=== PATIENT | female | born 1935 | race Caucasian/White ===

== ENCOUNTER 2017-01-06 16:44 | Inpatient (IN) ==
--- NOTE | 2017-01-06 17:42 | Diag Imaging Result Doc PS360 ---
XRAY PELVIS W/HIP 2-3VW LT - 01/06/2017 INDICATION: fall TECHNIQUE: Two views COMPARISON: 01/28/2012 FINDINGS: There is an acute displaced intertrochanteric left proximal femur fracture. No dislocation. There is a right femoral neck stabilization caro with an old healed fracture here involving extensive heterotropic new bone formation. IMPRESSION: Acute displaced intertrochanteric left proximal femur fracture. Electronically signed by Christian Ellis 01/06/2017 5:39 PM
--- NOTE | 2017-01-06 17:57 | Diag Imaging Result Doc PS360 ---
CHEST-1 VIEW - 01/06/2017 INDICATION: FALL TECHNIQUE: COMPARISON: 11/13/2013 FINDINGS: There is worsening, coarse peripheral interstitial opacities most suggestive of pulmonary fibrosis. Atypical mycobacteria could also be considered. Stable granulomas on the left side. Heart size remains grossly normal. IMPRESSION: Worsening pulmonary fibrosis or chronic atypical infiltrates. Electronically signed by Christian Ellis 01/06/2017 5:55 PM
[2017-01-06] MEDS ORDERED: MORPHINE IM ONE (18:51)
[2017-01-06] MEDS ORDERED: ZOFRAN IV ONE (18:51)
[2017-01-06 19:03] LABS: BASO% 0.1 % (0.0-0.8); EOS# 0.02 X1000 (0.0-0.7); EOS% 0.1 % (0.0-10.0); HEMATOCRIT 30.8 % (37.0-47.0); HEMOGLOBIN 10.2 g/dL (12.0-16.0); IMM GRAN# 0.05 X1000 (0.0-0.04); IMM GRAN% 0.3 % (0.0-0.5); LYMPH# 0.62 X1000 (1.2-3.4); LYMPH% 3.8 % (20.5-51.1); MANUAL DIFF NEEDED? NO; MCH 31.8 PG (27-31); MCHC 33.1 g/dL (33-37); MONO# 0.55 X1000 (0.11-0.59); MONO% 3.4 % (1.7-9.3); MPV 9.9 FL (7.4-10.4); NEUT% 92.3 % (42.2-75.2); PLT 376 X1000 (130-400); RBC 3.21 XMIL (4.2-5.4)
[2017-01-06 19:11] LABS: INR 0.96; PROTIME 10.1 Seconds (9.2-11.7)
[2017-01-06 19:27] LABS: CALCIUM 10.1 mg/dL (8.8-10.2); TOTAL BILIRUBIN 0.36 mg/dL (0.20-1.00); TOTAL PROTEIN 8.1 g/dL (6.3-8.3)
--- NOTE | 2017-01-06 19:49 | Diag Imaging Result Doc PS360 ---
HEAD/C-SPINE W/O CONTRAST - 01/06/2017 INDICATION: fall, head injury, fx hip TECHNIQUE: A CT dose reduction protocol was used. COMPARISON: None FINDINGS: Head CT: There is mild atrophy and periventricular white matter chronic microvascular disease. No intracranial mass or hemorrhage. The skull is intact. The sinuses, mastoids, and middle ears are clear. Cervical spine: Alignment is anatomic. No fracture or subluxation. There is moderate multilevel disc degeneration diffusely. No severe central canal stenosis. IMPRESSION: 1. No acute disease in the head. 2. Cervical spondylosis but no acute injury. Electronically signed by Christian Ellis 01/06/2017 7:46 PM
--- NOTE | 2017-01-06 19:50 | Diag Imaging Result Doc PS360 ---
PELVIS W/O CONTRAST - 01/06/2017 INDICATION: fx L hip, ordering CT head, confirm no acetabula fx TECHNIQUE: A CT dose reduction protocol was used. COMPARISON: None FINDINGS: There is a badly comminuted, displaced intertrochanteric left proximal femur fracture. No dislocations. No complication of the right hip stabilization caro. IMPRESSION: Badly comminuted, displaced intertrochanteric left hip fracture. Electronically signed by Christian Ellis 01/06/2017 7:48 PM
--- NOTE | 2017-01-06 19:58 | PROVIDER DOCUMENTATION ---
HPI-Musculoskeletal Pain/Inj - GENERAL Chief Complaint: Hip Pain Stated Complaint: LT HIP PAIN/FALL Time Seen by Provider: 01/06/17 18:38 Source: patient - HX OF PRESENT ILLNESS-MUSKULOSKELTAL Nature of Presenting Problem: Pt is a 81 y/o F c chief complaint of L hip pain and headache after she had a fall from a standing position this afternoon. Pt's feet were slippery because she had been soaking them and then walked on a slick surface. Pt states she hit her head but denies any LOC. Pt was unable to stand after the fall. Pt has a h /o R hip fx, R shoulder fx. On arrival, pt is in minimal distress. Review of Systems - Adult - REVIEW OF SYSTEMS - ADULT Constitutional: reports: no symptoms reported. denies: chills, fatique Eyes: reports: no symptoms reported. denies: blurred vision, double vision Ears, Nose, Mouth & Throat: reports: no symptoms reported. denies: ear pain, nose pain Cardiovascular: reports: no symptoms reported. denies: chest pain, orthopnea Respiratory: reports: no symptoms reported. denies: cough, shortness of breath Gastrointestinal: reports: no symptoms reported. denies: abdominal pain, difficulty swallowing, frequent heartburn Genitourinary: reports: no symptoms reported. denies: dysuria, frequent UTI's Musculoskeletal: reports: see HPI, bone pain, joint pain, muscle aches Integumentary: reports: no symptoms reported. denies: itching, rash Neurological: reports: no symptoms reported. denies: numbness, paresthesia Psychiatric: reports: no symptoms reported. denies: anxiety, emotional problems Endocrine: reports: no symptoms reported. denies: cold intolerance, heat intolerance Hematologic/Lymphatic: reports: no symptoms reported. denies: blood clots, low blood count Allergic/Immunologic: reports: no symptoms reported All Other Systems: Reviewed and Negative Past History - Adult - PAST MEDICAL HISTORY-ADULT Review of Records: reports: Old Records Reviewed, Nursing Assessment Review, Medications Reviewed, Social history reviewed & non-contributory. Major Childhood Illnesses: reports: denies history Cardiovascular: reports: denies history Respiratory: reports: denies history Gastrointestinal: reports: denies history Obstetrical/Gynecological: reports: denies history Genitourinary: reports: denies history Musculoskeletal: reports: neck/back injury, other fractures, orthopedic injury, osteoporosis Neurological: reports: denies history Endocrine/Immune: reports: Diabetes Diabetes Type: Type 2 Other Conditions: reports: denies history - PRIOR SURGERIES/PROCEDURES Surgical/Procedure History: reports: none, orthopedic (extremity), joint replacement - IMMUNIZATION STATUS Childhood Immunizations: See Nurse Assessment Flu Vaccine: See Nurse Assessment - FAMILY HISTORY Family History: reviewed, not pertinent - SOCIAL HISTORY Smoking: denies Substance Use: none/never Alcohol Use Frequency: never Physical Exam-Injury Related - Physical Exam-Injury Related Initial Vital Signs Reviewed: Yes General Appearance: appears well, alert, no apparent distress Eyes: PERRL/EOMI, pink conjunctivae Head, Ears, Nose, Mouth & Throat: normocephalic/atraumatic, moist mucous membranes, normal ENT inspection Neck: non-tender, full range of motion, supple Respiratory: chest non-tender, lungs clear, normal breath sounds Cardiovascular: normal peripheral pulses, regular rate, rhythm, no edema Abdominal Exam: normal bowel sounds, non tender, soft Back Exam: normal inspection Extremity: tenderness (L hip) Integumentary: normal color, warm/dry, blanching Neurologic: grossly normal, no motor/sensory deficits Psych/Mental Status: normal mood/affect, normal thought content, normal thought process, oriented x 3 - Glascow Coma Score Best Eye Response (Kelly): (4) open spontaneously Best Verbal Response (Kelly): (5) oriented Best Motor Response (Kelly): (6) obeys commands Progress - PLAN OF CARE/RESULTS Progress/Plan/Lab Results: Vital Signs - 8 hr 01/06/17 16:49 Temperature 98.3 F Pulse Rate 111 H Respiratory Rate 18 Blood Pressure 141/61 O2 Sat by Pulse Oximetry 98 Laboratory Results - last 24 hr 01/06/17 01/06/17 01/06/17 17:54 17:54 17:54 WBC 16.25 H RBC 3.21 L Hgb 10.2 L Hct 30.8 L MCV 96.0 MCH 31.8 H MCHC 33.1 RDW Std Deviation 12.3 Plt Count 376 MPV 9.9 Immature Gran % (Auto) 0.3 Neut % (Auto) 92.3 H Lymph % (Auto) 3.8 L Howard % (Auto) 3.4 Eos % (Auto) 0.1 Baso % (Auto) 0.1 Immature Gran # (Auto) 0.05 H Neut # (Auto) 15.00 H Lymph # (Auto) 0.62 L Howard # (Auto) 0.55 Eos # (Auto) 0.02 Baso # (Auto) 0.01 PT 10.1 INR 0.96 PTT (Actin FS) 23.0 Sodium 135 L Potassium 5.0 Chloride 97 L Carbon Dioxide 25 Anion Gap 13 BUN 25 H Creatinine 1.1 H Estimated GFR/1.73 m2 47 BUN/Creatinine Ratio 23 Glucose 268 H Calculated Osmolality 284 Calcium 10.1 Total Bilirubin 0.36 AST 52 H ALT 52 H Alkaline Phosphatase 122 H Total Protein 8.1 Albumin 4.0 Globulin 4.1 Albumin/Globulin Ratio 1.0 Orders Category Date Time Status [place] Cath Insertion ORDERED Care 01/06/17 19:48 Active CHEST-1 VIEW [RAD] Routine Exams 01/06/17 17:08 Completed HEAD/C-SPINE W/O CONTRAST [CT] Stat Exams 01/06/17 18:50 Completed PELVIS W/O CONTRAST [CT] Stat Exams 01/06/17 18:50 Completed XRAY PELVIS W/HIP 2-3VW LT [RAD] Stat Exams 01/06/17 16:52 Completed CBC WITH ELECTRONIC DIFF [HEME] Stat Lab 01/06/17 17:54 Completed COMPREHENSIVE METABOLIC PANEL [CHEM] Stat Lab 01/06/17 17:54 Completed PROTIME WITH INR [COAG] Stat Lab 01/06/17 17:54 Completed PTT [COAG] Stat Lab 01/06/17 17:54 Completed Morphine Med 01/06/17 18:51 Discontinued 2 mg IM NOW ONE Ondansetron [Zofran] Med 01/06/17 18:51 Discontinued 4 mg IV NOW ONE EKG [EKG] Stat Ther 01/06/17 18:40 Ordered Result Diagrams: 01/06/17 17:54 01/06/17 17:54 - XRAY 1 XRAY Study: Chest Impression: Abnormal (worsening pulmonary fibrosis - radiology) 2 XRAY: Left XRAY Study: Hip Impression: Abnormal (L intertroch fx - radiology) - CT/MRI 1 CT Study: Cervical Spine, Head Impression: Normal CT Results: no acute injury - radiology 2 CT Study: Pelvis Impression: Abnormal (displaced intertroch) - CONSULTS/PCP/HOSPITALIST Notification #1 *Consult/PCP/Hospitalist*: Dr. Moreno (Ortho) Time Discussed: 19:54 Reason/Comments: Make pt NPO p midnight. Will do case tomorrow am. #2 Consult: Dr. Forman (Hospitalist) Time Discussed: 19:56 Reason/Comments: Will admit pt. Departure - Departure Time of Disposition Decision: 19:57 DIAGNOSIS: Fall, Intertrochanteric fracture of femur Disposition: ADMITTED INPATIENT 09 Certified Medical Emergency: Emergent Condition: Stable Additional Freetext Instructions: ED Follow Up Instructions: You have been treated by a care provider in the Emergency Department. These instructions are being provided to you so you can have an understanding of how to care for yourself upon discharge. Upon discharge from the Emergency Department, you are responsible for making arrangements for follow-up care by a physician of your choice. Take all prescribed medications as directed. Return to the Emergency Department immediately for any new or worsening symptoms. You may call the Physician Referral phone number at [phone] to obtain a list of Physicians who are taking new patients. Referrals and Follow-Ups: Jarek Fagan [Primary Care Provider] - - Critical Care Note This patient required my direct & personal management of CC.: No Attestation - Physician/ FLORINA Attestation Patient care was provided by Advanced Practice Provider:: Yes Advanced Practice Provider:: Anam Fairchild Advanced Practice Provider documentation review:: The Mid-level provider documentation, treatment plan and medical decision making was reviewed by the physician who agrees with all treatment and medical decision making by the MLP.
--- NOTE | 2017-01-06 20:06 | ED EKG INTERP ---
This chart was entered by Lauri Howard Scribe, acting as scribe for Ari Tony MD. EKG Interpretation - EKG Time of EKG reading by physician:: 19:53 EKG Read and Signed by:: Ari Tony EKG Interpretation (*Must complete 3 of following elements*): Normal Rate: 97 Rhythm: Sinus rhythm with occasional PVC This chart was documented by the indicated scribe, (Lauri Howard Scribe) and accurately reflects the services I performed and decisions made by me, Ari Tony MD, as attested by the provider's signature.
[2017-01-06 21:31] LABS: URINE CULTURE NEEDED? NO; URINE MICRO REVIEW NEEDED? NO; URINE SOURCE CATH
[2017-01-06 21:37] LABS: BILIRUBIN URINE NEGATIVE (NEGATIVE); BLOOD URINE NEGATIVE (NEGATIVE); COLOR YELLOW; GLUCOSE URINE 500 mg/dL (NEGATIVE); LEUKOCYTES URINE NEGATIVE (NEGATIVE); NITRITE URINE NEGATIVE (NEGATIVE); PH URINE 6.5; PROTEIN URINE NEGATIVE (NEGATIVE); SP GRAVITY URINE 1.015; TURBIDITY URINE CLEAR (CLEAR); UROBILINOGEN URINE NORMAL (NORMAL)
[2017-01-06 21:38] LABS: UR EPITHELIAL CELLS <10 /HPF (<10); URINE BACTERIA NEGATIVE /HPF; URINE RBC <10 /HPF (<10); URINE WBC <10 /HPF (<10)
--- NOTE | 2017-01-06 22:07 | HISTORY AND PHYSICAL ---
PRIMARY CARE PHYSICIAN: Dr. Jarek Fagan. CHIEF COMPLAINTS: Fall. HISTORY OF PRESENTING ILLNESS: An 81-year-old elderly female with a history of diabetes mellitus type 2, hypertension, hyperlipidemia, apparently had washed her feet and then somehow slipped and landed on the floor. She developed moderate amount of pain in the left hip and subsequently had come to the emergency department. In the ER, imaging was done that showed left hip fracture and subsequently she will need hospitalization for further management. During initial evaluation was also noted that she had abnormal liver function tests and also elevated white count. Blood cultures were ordered and she will be started on empiric antibiotics. At the time of my examination, she had denied any headache, fever, chills, chest pain, shortness of breath, hemoptysis or any weight changes. Just complained of left hip pain. PAST MEDICAL HISTORY: Includes diabetes mellitus type 2, hypertension, hyperlipidemia. PAST SURGICAL HISTORY: Right hip pinning, right shoulder surgery. ALLERGIES: No known drug allergies. CURRENT MEDICATIONS: Listed in the MAR. SOCIAL HISTORY: No history of smoking, alcohol or illicit drug use. FAMILY HISTORY: No history of coronary disease. REVIEW OF SYSTEMS: Twelve point systems is as listed as in HPI. Other systems negative. PHYSICAL EXAMINATION: GENERAL: Cooperative, friendly female. She is resting comfortably now. VITAL SIGNS: Temperature 98.3 degrees, pulse 111, respiration 18, blood pressure 141/61, she is saturating 98%. HEENT: Extraocular movements intact. PERRLA. NECK: No masses. CHEST: Clear to auscultation. CARDIOVASCULAR: Regular rate and rhythm. ABDOMEN: Soft. Positive bowel sounds. EXTREMITIES: Left hip tenderness. NEURO: She is awake, alert, oriented x3. : No bladder distention. SKIN: Warm. LABORATORIES AND STUDIES: Sodium 135, potassium 5.0, chloride 97, CO2 25, BUN is 25, creatinine is 1.1, glucose is 268. AST 62, ALT 52, alkaline phosphatase 122. WBC 16.25, hemoglobin 10.2, hematocrit 30.8, platelets 376,000. ASSESSMENT: This 81-year-old female with a history of diabetes mellitus type 2 , hypertension, hyperlipidemia apparently had a slip and fall where she landed on her left hip. She was found to have a displaced intertrochanteric fracture of the left hip. Subsequently she will need hospitalization for management. ASSESSMENT: 1. Left hip fracture. 2. Leukocytosis, possibly reactive. 3. Elevated liver function tests possibly secondary to medication other etiologies. 4. Hypertension. 5. Diabetes mellitus type 2. PLAN: 1. We will admit patient to medical floor with telemetry. 2. We will keep NPO and start patient on pain control. 3. We will consult orthopedics. 4. We will check blood cultures. Start patient on empiric antibiotics. 5. We will check a hepatitis profile, hold her statins and check abdominal ultrasound of right upper quadrant. 6. Monitor blood pressure. Resume antihypertensive agent. 7. We will put patient on sliding scale insulin regimen and monitor blood glucose. 8. Put patient on DVT prophylaxis with SCD. 9. We will continue to follow and reassess. cc: Feliz Forman MD MTDD
[2017-01-06] MEDS ORDERED: MORPHINE IV PRN (22:16)
[2017-01-06] MEDS ORDERED: ROCEPHIN 1 GM/NS 1 GM/50 ML IVPB IV SCH (22:16)
[2017-01-06] MEDS: NS 1,000 ML IV SCH (23:36)
[2017-01-07 05:19] LABS: MANUAL DIFF NEEDED? NO
[2017-01-07 05:38] LABS: BASO% 0.2 % (0.0-0.8); EOS# 0.03 X1000 (0.0-0.7); EOS% 0.4 % (0.0-10.0); HEMATOCRIT 26.2 % (37.0-47.0); HEMOGLOBIN 8.4 g/dL (12.0-16.0); IMM GRAN# 0.02 X1000 (0.0-0.04); IMM GRAN% 0.2 % (0.0-0.5); LYMPH# 1.26 X1000 (1.2-3.4); LYMPH% 14.9 % (20.5-51.1); MCH 30.9 PG (27-31); MCHC 32.1 g/dL (33-37); MCV 96.3 FL (81-99); MONO# 0.77 X1000 (0.11-0.59); MONO% 9.1 % (1.7-9.3); MPV 9.3 FL (7.4-10.4); NEUT% 75.2 % (42.2-75.2); PLT 326 X1000 (130-400); RBC 2.72 XMIL (4.2-5.4)
[2017-01-07 06:10] LABS: CALCIUM 9.5 mg/dL (8.8-10.2); POTASSIUM 4.9 mmol/L (3.5-5.1)
--- NOTE | 2017-01-07 08:43 | CONSULTATION ---
DATE OF CONSULTATION: 01/07/2017 CHIEF COMPLAINT: Left hip pain, status post fall. HISTORY OF PRESENT ILLNESS: This very pleasant, 81-year-old female who was examined and seen in bed 483-A. Her son is at bedside. She was washing her feet yesterday and when she got up, unfortunately, her feet were still a little wet, and slipped on floor, landing directly on her left hip. She had immediate pain and discomfort, was unable to ambulate, and was transported to the emergency department by EMS. She was then admitted for further workup and evaluation. Currently states her pain is well-controlled. Denies any numbness, tingling, fevers, or chills. No chest pain, shortness of breath. No recent sickness or illness. PAST MEDICAL HISTORY: Includes diabetes mellitus type 2, hypertension, hyperlipidemia. PAST SURGICAL HISTORY: She has had intramedullary nailing of the right hip and a right reverse total shoulder arthroplasty secondary to a fracture by Dr. Carl. MEDICATIONS: Please see MAR. ALLERGIES: No known drug allergies. SOCIAL HISTORY: Lives in [place], [place]. No alcohol, tobacco, or illicit drugs. FAMILY HISTORY: Cardiac disease. REVIEW OF SYSTEMS: A 10 point review of systems was negative except as stated in the HPI. PHYSICAL EXAMINATION: General. She is alert and oriented x3. No apparent distress. She is a well developed, well nourished, 81-year-old female. HEENT: Head is normocephalic, atraumatic. Eyes: Pupils equal, round, react to light and accommodation. Extraocular muscles intact bilaterally. Ears: No otalgia or otorrhea. Throat was not injected. Neck: Supple. Trachea is midline. Cardiovascular: Regular rate and rhythm. Respiratory: No distress noted. Chest rises equal bilaterally. Abdomen: Soft, nontender. Musculoskeletal: On examination of the left lower extremity, she has a shortened and externally rotated left lower extremity. She has got a positive log roll test. Skin: Warm, dry, intact. Extremities: Her compartments are soft. She is grossly neurovascularly intact distally. Vital Signs: Temperature is 98.5 degrees, pulse 98, respirations 16, blood pressure 115/66. IMPRESSION: 1. Left hip intertrochanteric fracture, status post fall. 2. Leukocytosis, likely reactive. At this point, her white blood cell count is improved. Elevated liver function tests. Patient just underwent an abdominal ultrasound. 3. Hypertension. 4. Diabetes mellitus type 2. RECOMMENDATIONS: Per an orthopedic standpoint, I discussed with the patient and her son that I recommend intramedullary nailing of the left hip fracture. We will keep her NPO. Her hemoglobin is 8.4 this morning. We are going to type and screen her prior to the OR. I went over the risks, benefits, complications, and indications associated with the surgical procedure with her and her son including the risks of obvious infections, DVT, pulmonary embolism, neurovascular injury, risk of continued pain, and need for the surgery if complications arise. We went over malunion, nonunion, hardware failure, as well as delayed union. We went over the risks risk associated with her age and with surgery, and the potential risk of with these surgeries. She understands this. We will get her scheduled this a.m. I will continue to follow her throughout her hospital stay. cc: Bernadette Moreno,
--- NOTE | 2017-01-07 08:49 | Diag Imaging Result Doc PS360 ---
EXAM: US ABDOMEN-COMPLETE HISTORY: abnormal LFT TECHNIQUE: COMPARISON: None. FINDINGS: Normal pancreatic head and body. Pancreatic tail is obscured. No aneurysmal dilatation to the abdominal aorta. Normal inferior vena cava. There may be mild fatty infiltration of the liver. Normal gallbladder. No stones. Gallbladder wall is not thickened. The common bile duct measures 4 mm. A 1.9 cm cyst arises from the right kidney. No hydronephrosis. Normal spleen. No ascites. Normal left kidney. No hydronephrosis. IMPRESSION: 1.Right renal cyst 2.Questionable mild fatty infiltration of the liver Electronically signed by Homero Figueroa 01/07/2017 8:47 AM
[2017-01-07] MEDS: THERA M PLUS PO SCH (10:40)
[2017-01-07] MEDS ORDERED: HALDOL IV PRN (11:20)
[2017-01-07] MEDS ORDERED: MILK OF MAGNESIA PO PRN (11:20)
[2017-01-07] MEDS ORDERED: OXY IR PO PRN (11:20)
[2017-01-07] MEDS ORDERED: MORPHINE IV PRN (11:20)
[2017-01-07] MEDS: TYLENOL PO SCH ×2 (12:24→21:40)
[2017-01-07] MEDS: NS 1,000 ML IV SCH ×2 (12:52→18:29)
[2017-01-07] MEDS: KEFZOL 1 GM/D5W 1 GM/50 ML IVPB IV SCH ×2 (14:29→21:39)
--- NOTE | 2017-01-07 15:34 | PROGRESS NOTE ---
DATE: 01/07/2017 SUBJECTIVE: Today Ms. Reece refers to be doing okay. She just came from left hip surgery. OBJECTIVE: Vital signs: Blood pressure is 144/56, pulse of 78, respirations 17, temperature 98.8 degrees. General: Ms. Reece is an 81-year-old female. She is in bed. She did not seem to be in any remarkable distress. HEENT: Mucosa is slightly dry. Anicteric. Acyanotic. Neck: Supple. Chest: Good air entry bilaterally. No crepitations. No rhonchi. Cardiovascular: Regular rate and rhythm. No murmurs. No rubs. No gallops. Abdomen: Soft, nontender. Extremities: No pedal edema. The left has some dressing over the hip consistent with recent hip surgery. Central Nervous System: Patient is alert and oriented. LABORATORY DATA: WBC is 8.44, hemoglobin is 8.4, platelet count is 326,000. Chemistry is reviewed. Creatinine is 1.4. Rest of chemistry is fine. CURRENT MEDICATIONS: 1. Tylenol p.r.n. 2. Cefazolin. 3. Docusate. 4. Iron sulfate. 5. Haldol p.r.n. 6. Magnesium hydroxide. 7. Morphine 2 g IV q.8 h. to p.r.n. 8. Normal saline at 80 mL/h. 9. OxyContin. ASSESSMENT: 1. Left femoral neck fracture status post open reduction with intramedullary caro fixation by Dr. Moreno. This just happened about an hour ago. Postoperatively we will restart the patient on oral prophylactic anticoagulation from tomorrow. Will also get physical therapy and social work for rehab placement. 2. Leukocytosis, likely reactive. It is improved. 3. Hypertension. 4. Diabetes mellitus. 5. Dehydration with mild acute kidney injury. We will continue with gentle hydration. PLAN: I think in general Ms. Reece is relatively stable. We will continue with adequate pain management. Get physical therapy to see her. Get also social service liaison to evaluate tomorrow. We will restart her on Xarelto tomorrow for post orthopedic surgery DVT prophylaxis. cc: Timmy Zaragoza MD
--- NOTE | 2017-01-07 16:20 | OPERATIVE NOTE ---
PROCEDURE DATE: 01/07/2017 PREOPERATIVE DIAGNOSIS: A displaced comminuted left intertrochanteric hip fracture. POSTOP DIAGNOSIS: A displaced comminuted left intertrochanteric hip fracture. PROCEDURE: Left hip intramedullary nailing with Synthes long trochanteric fixation nail. SURGEON: Dickson Moreno D.O. HAM PASSER: None. ANESTHESIA: General LMA. ESTIMATED BLOOD LOSS: 100 mL. FLUIDS: Are per anesthesia. DRAINS: None. ANTIBIOTICS: Patient was receiving Rocephin 1 g IV this a.m. secondary to leukocytosis by the primary care team. SPECIMEN TISSUES REMOVED: None. IMPLANTS: 1. Synthes 360 mm x 11 mm diameter trochanteric fixation nail. 2. 95 mm helical blade. 3. 44 and 50 mm 5.5 mm screws. COMPLICATIONS: None. DISPOSITION: Stable recovery room. INDICATIONS FOR PROCEDURE: This 81-year-old female sustained a fall yesterday while at home. She was washing her feet and slipped and fell afterwards. She was transported emergency department there is found to have a left hip fracture. I was asked to see her in consultation. I saw this a.m. discussed with her and her son she needing to undergo left hip surgery with intramedullary nailing for the hip fracture. We went over the risks, benefits, complications, indications associated with surgical procedure. She agrees and wished to proceed. The left lower extremity has been marked preoperative area. Already consented, signed, placed in chart. DETAIL PROCEDURE: Patient was taken back to the operative suite, placed on operating table in a supine position. She was then given benefit of a general anesthetic. All bony prominences were padded well. She was then placed on the Spiro table. Well-padded traction boots were applied. Well-padded perineal post was applied. Left lower extremity sterilely prepped and draped in usual sterile fashion. Time-out was performed identifying the correct patient, procedure, site to be performed. All in attendance in agreement. Preoperative antibiotics were given. Under direct visualization with fluoroscopy identified the greater trochanter. Incision was made just proximal and over the greater trochanter through the skin, subcutaneous tissue. I then made a separate incision in line with skin incision to the iliotibial band. A guide pin was then placed at appropriate starting position over the greater trochanter down into the canal. This was verified with AP and lateral fluoroscopy. An opening reamer was then used to gain access into the canal. I then incrementally reamed up to a size 12.5 mm reamer. Prior to this I placed a ball-tipped guidewire down the canal of the femur. The length was verified with x-ray. Alignment was verified under x-ray as well. Length was then measured and found to be 360 mm. I then reamed incrementally up to 12.5 mm reamer down the shaft. I then placed a 360 mm x 11 mm trochanteric fixation nail. It was seated in the appropriate position verified with fluoroscopy. Triple sleeve guide pin was in place after stab incision was made over lateral hip through the femoral neck and head. This was placed in the center-center position on AP and lateral x-ray. Once alignment had been verified I then measured the length, length found to be 95 mm. The lateral cortex was then reamed. The helical blade was then inserted. It was then locked proximally with the proximal locking screw. All equipment was removed from the nail. The wound was then thoroughly irrigated well. I then reapproximated the iliotibial band was inverted 1 Vicryl, interrupted 2-0 Vicryl. [place] on the proximal incision. Second incision just distal to this for the helical blade was closed with inverted 2-0 Vicryl and valeriano on skin. I then turned my attention to the distal aspect of the nail. Perfect circles were obtained and using perfect [place] technique bicortical holes were drilled through the static locking end through the oblong hole of the nail. Two screws were then placed. Wounds were then thoroughly irrigated well. Final pictures were then taken verifying correct length as well as correct alignment of the fracture site. The wounds were then thoroughly irrigated well and the final 2 stab incisions were closed with inverted 2-0 Vicryl and valeriano on the skin. Sterile dressing was applied in form of Xeroform, 4 x 4s, ABDs and tape. Needle, sponge counts correct x2. Patient tolerated procedure well. Transferred to PACU in stable condition. DISPOSITION: Patient will be admitted back to medical-surgical floor. She will continue DVT prophylaxis. Will get physical therapy with 50% weightbearing to her left lower extremity. Make sure she is on adequate diet as well as adequate pain control. I will continue to follow while she is in the hospital. cc: Bernadette Moreno, DO
[2017-01-07] MEDS: HUMALOG SUBQ SCH ×2 (17:05→21:40)
[2017-01-07] MEDS: PERIDEX MT SCH (21:39)
[2017-01-07] MEDS: COLACE PO SCH (21:39)
[2017-01-08] MEDS: NS 1,000 ML IV SCH (04:34)
[2017-01-08] MEDS: TYLENOL PO SCH ×3 (04:35→20:22)
[2017-01-08 05:48] LABS: HEMATOCRIT 19.3 % (37.0-47.0); HEMOGLOBIN 5.9 g/dL (12.0-16.0)
[2017-01-08 05:51] LABS: CALCIUM 8.2 mg/dL (8.8-10.2); POTASSIUM 4.5 mmol/L (3.5-5.1)
[2017-01-08] MEDS: HUMALOG SUBQ SCH ×4 (06:40→20:22)
[2017-01-08] MEDS: KEFZOL 1 GM/D5W 1 GM/50 ML IVPB IV SCH (06:40)
[2017-01-08 08:19] LABS: RETIC% 1.15 % (0.8-2.1); RETIC-HE 34.1 PG (28.2-36.6)
[2017-01-08] MEDS: THERA M PLUS PO SCH (08:19)
[2017-01-08] MEDS: FERROUS SULFATE PO SCH (08:19)
[2017-01-08] MEDS: PERIDEX MT SCH ×2 (08:19→20:22)
--- NOTE | 2017-01-08 08:27 | PROGRESS NOTE ---
DATE: 01/08/2017 SUBJECTIVE: The patient is postoperative day number 1 of intramedullary nailing of a left hip fracture. Overall, she states she is doing well. Her pain is well controlled. She currently denies any shortness of breath. No chest pain, no numbness or tingling, and no fevers or chills. She is resting well. OBJECTIVE: Vital Signs: Temperature is 97.7 degrees, pulse 87, respirations 16, blood pressure 104/46. Extremities: On examination of the left lower extremity, her incision sites are well approximated. She does have some slight drainage on the proximal dressing. Otherwise, her compartments are soft and nontender. She has minimal pain with internal and external rotation of the hip. She is grossly neurovascularly intact distally. Negative Homans bilaterally. LABORATORY STUDIES: Hemoglobin 5.9, hematocrit 19.3. ASSESSMENT: 1. Postoperative day number 1 of intramedullary nailing of left hip fracture, status post a comminuted intertrochanteric hip fracture. 2. Acute postoperative blood loss anemia. PLAN: The patient is currently receiving 2 units of packed red blood cells. The patient's preoperative hemoglobin is 8.4. We will continue to monitor this. I am going to give her dressing changes daily. She will keep 50% weightbearing to the left lower extremity. Continue to follow. cc: Bernadette Moreno, DO
[2017-01-08 08:29] LABS: IRON SATURATION 8 %; TIBC 188 ug/dL; TOTAL IRON 15 ug/dL (49-151); UNBOUND IRON 173 ug/dL (112-346)
[2017-01-08] MEDS ORDERED: PROTONIX PO ONE (09:23)
--- NOTE | 2017-01-08 14:41 | PROGRESS NOTE ---
DATE: 01/08/2017 SUBJECTIVE: The patient is resting comfortably in bed. She has no complaints at this time. OBJECTIVE: Vital Signs: Temperature 99 degrees, blood pressure 156/56, heart rate 85, respirations 16, O2 saturations 100% on room air. General: This is an elderly female, lying in bed, in no acute distress. HEENT: Head normocephalic, atraumatic. Heart: S1 , S2. Normal. Regular rate and rhythm. Lungs: Clear to auscultation bilaterally. No wheezes , no rales. No rhonchi. Abdomen: Positive bowel sounds. Soft, nontender, nondistended. Extremities: No edema. No cyanosis. No calf tenderness. Neurologic: The patient is alert and oriented x3. LABORATORY DATA: Hemoglobin 5.9, hematocrit 19, BUN 22, creatinine 0.9, glucose 125. ASSESSMENT AND PLAN: 1. Status post left hip intramedullary nailing. Stable. 2. Anemia. The patient will receive 2 units of packed red blood cells today. We will monitor the hemoglobin and hematocrit closely. 3. Diabetes mellitus type 2. We put her on sliding scale insulin. 4. Acute kidney injury. Resolved. 5. Gastroesophageal reflux disease. She is on Protonix. 6. Deep venous thrombosis prophylaxis. Continue on SCDs. 7. Disposition: Social service has been consulted for rehab placement. cc: Keira Rodrigez MD MTDD
[2017-01-08] MEDS: COLACE PO SCH (20:22)
[2017-01-08] MEDS ORDERED: ICAR-C PO SCH (21:00)
[2017-01-09] MEDS: TYLENOL PO SCH ×3 (03:30→21:46)
[2017-01-09 05:47] LABS: HEMATOCRIT 28.5 % (37.0-47.0); HEMOGLOBIN 9.7 g/dL (12.0-16.0); MCV 94.1 FL (81-99); MPV 9.5 FL (7.4-10.4); RBC 3.03 XMIL (4.2-5.4)
[2017-01-09 06:14] LABS: AGAP 9; BUN 16 mg/dL (8-22); CALCIUM 8.9 mg/dL (8.8-10.2); CHLORIDE 104 mmol/L (98-107); COSMO 279; POTASSIUM 4.4 mmol/L (3.5-5.1); SODIUM 139 mmol/L (136-145); TCO2 26 mmol/L (25-35)
[2017-01-09] MEDS: HUMALOG SUBQ SCH ×4 (06:31→21:49)
--- NOTE | 2017-01-09 07:23 | Diag Imaging Result Doc PS360 ---
EXAM: CHEST-PORTABLE HISTORY: dyspnea TECHNIQUE: Portable erect AP chest at 0545 COMMENT: The inspiration is less optimal than on 01/06/2017. Otherwise has been no significant change. There is evidence of COPD. The possibility of mild basilar interstitial fibrosis cannot be excluded. IMPRESSION: Stable chest Electronically signed by Ramy Nelson 01/09/2017 7:21 AM
[2017-01-09] MEDS: PROTONIX PO SCH (07:36)
--- NOTE | 2017-01-09 07:59 | PROGRESS NOTE ---
DATE: 01/09/2017 SUBJECTIVE: Daysi Reece is an 81-year-old female who is postoperative from a left hip trochanteric fixation nail placement by Dr. Moreno. The surgery was on 01/07/2017. She is postoperative day 2. She has no complaints. OBJECTIVE: She is a well-developed, well-nourished female. She is alert, oriented, and cooperative with the exam. Her wounds are clean, dry, and intact without sign of infection. Her vital signs are stable. She is afebrile. I do not see in the chart where she has been seen yet by physical therapy. ASSESSMENT: Stable after left trochanteric fixation nail placement. PLAN: Therapy should work with her today. She can go to rehab likely tomorrow. She should be 50% weightbearing of her left leg per Dr. Moreno. She can follow up with me or Dr. Moreno, whatever the family's preference. cc: Barrett Tripp MD
[2017-01-09] MEDS ORDERED: TORADOL ONE (08:51)
[2017-01-09] MEDS ORDERED: ROBINUL ONE (08:52)
[2017-01-09] MEDS ORDERED: XYLOCAINE-MPF 2% ONE (08:52)
[2017-01-09] MEDS ORDERED: LR 2,000 ML ONE (08:52)
[2017-01-09] MEDS ORDERED: EPHEDRINE ONE (08:52)
[2017-01-09] MEDS ORDERED: AMIDATE ONE (08:52)
[2017-01-09] MEDS ORDERED: OFIRMEV 1000 MG/ISOTONIC SOLN 1,000 MG/100 ML BOTTLE ONE (08:52)
[2017-01-09] MEDS: THERA M PLUS PO SCH (09:43)
[2017-01-09] MEDS: PERIDEX MT SCH (09:43)
[2017-01-09] MEDS: FERROUS SULFATE PO SCH (09:43)
[2017-01-09] MEDS: ZOFRAN IV PRN (12:07)
[2017-01-09 12:54] LABS: HEPATITIS PROFILE ACUTE SEE COMMENTS
[2017-01-09] MEDS ORDERED: ULTRAM PO PRN (16:09)
[2017-01-09] MEDS ORDERED: LOVENOX SUBQ SCH (16:15)
--- NOTE | 2017-01-09 16:25 | PROGRESS NOTE ---
DATE: 01/09/2017 SUBJECTIVE: The patient is sitting up in bed. She has no complaints. No acute events noted overnight. OBJECTIVE: Vital Signs: Temperature 99 degrees, blood pressure 146/65, heart rate 102, respirations 20, O2 saturations 99% on room air. General: This is an elderly female, lying in bed, in no acute distress. Head: Normocephalic, atraumatic. Heart: S1, S2. Normal. Regular rate and rhythm. Lungs: Clear to auscultation bilaterally. No wheezes. No rales. No rhonchi. Abdomen: Positive bowel sounds. Soft, nontender, nondistended. Extremities: No edema. No cyanosis. No calf tenderness. Neurologic: The patient is alert and oriented x3. LABS: White blood cell count 8.5, hemoglobin 9.7, hematocrit 28, platelets 220,000. Sodium 139, potassium 4.4, chloride 104, CO2 26, BUN 16, creatinine 0.7, glucose 108. ASSESSMENT AND PLAN: 1. Status post left hip intramedullary nailing. Stable. 2. Anemia. The patient's hemoglobin and hematocrit have improved after receiving 2 units of packed red blood cells yesterday. 3. Diabetes mellitus type 2. Continue on sliding scale insulin. 4. Gastroesophageal reflux disease. Continue on Protonix. 5. Deep vein thrombosis prophylaxis. Will start the patient on Lovenox. 6. Acute kidney injury. Resolved. 7. Disposition. The patient should be stable for discharge to rehab tomorrow. cc: Keira Rodrigez MD
[2017-01-09] MEDS: GLUCOPHAGE PO SCH (16:29)
[2017-01-09] MEDS ORDERED: LINZESS PO SCH (21:00)
[2017-01-09] MEDS ORDERED: LIPITOR PO SCH (21:00)
[2017-01-09] MEDS: ZOLOFT PO SCH (21:47)
[2017-01-09] MEDS: COLACE PO SCH (21:48)
[2017-01-10 06:06] LABS: CALCIUM 8.6 mg/dL (8.8-10.2); POTASSIUM 4.4 mmol/L (3.5-5.1)
[2017-01-10 06:45] LABS: HEMATOCRIT 27.6 % (37.0-47.0)
[2017-01-10] MEDS: TYLENOL PO SCH (06:47)
[2017-01-10] MEDS: PROTONIX PO SCH (06:48)
[2017-01-10] MEDS: HUMALOG SUBQ SCH ×2 (06:48→11:18)
[2017-01-10] MEDS ORDERED: LINZESS PO SCH (07:00)
[2017-01-10] MEDS: PERIDEX MT SCH ×2 (07:58→08:02)
[2017-01-10] MEDS: GLUCOPHAGE PO SCH (07:59)
[2017-01-10] MEDS: ZOLOFT PO SCH (08:00)
[2017-01-10] MEDS: THERA M PLUS PO SCH (08:00)
[2017-01-10] MEDS: FERROUS SULFATE PO SCH (08:00)
[2017-01-10 08:30] VITALS: BP 172/52
[2017-01-10] MEDS: ZOFRAN IV PRN (08:46)
--- NOTE | 2017-01-10 10:12 | DISCHARGE SUMMARY ---
ADMISSION DATE: 01/06/2017 DISCHARGE DATE: CONSULTATIONS: Anna Moreno, with Orthopedics. PERTINENT PROCEDURES: 1. Head and cervical spine showed no acute disease. Cervical spondylosis but no acute injury. 2. Pelvis CT showed badly communicated displaced intertrochanteric left hip fracture. 3. Abdominal ultrasound showed a right renal cyst. Questionable mild fatty infiltration of the liver. 4. Left hip intramedullary nailing with trochanteric fixation nail. DISCHARGE DIAGNOSES: 1. Status post left hip intramedullary nailing 2. Anemia 3. Diabetes mellitus type 2. 4. Gastroesophageal reflux disease. 5. Acute kidney injury 6. Hypertension 7. Chronic constipation HOSPITAL COURSE: Ms. Reece is an 81-year-old female with a history of diabetes mellitus type 2, hypertension, and hyperlipidemia. Patient reported to the ED after washing her feet and she slipped and landed on the floor. She developed a moderate amount of pain in her left hip and subsequently had to come to the emergency department. In the ED, imaging was done that showed a left hip fracture. She was also noted to have abnormal LFTs, as well as an elevated white count. They did order blood cultures, as well as urinalysis. She was started on empiric antibiotics and found to have an acute kidney injury. The patient's abdominal ultrasound just showed possible mild fatty infiltration of the liver. She underwent a left hip intermittently nailing with Dr. Moreno on 01/07/2017. The patient was also gently hydrated. Her leukocytosis was staying reactive. Her antibiotics were stopped. The patient did have some acute blood loss anemia, for which she received 2 units of PRBCs. She has been stable now for 2 days with her hemoglobin and hematocrit, as well as hemodynamically stable. She has worked with physical therapy where she has been 50% weightbearing on the left lower extremity. The patient has been approved for discharge today to [facility] in [place]. VITAL SIGNS: Temperature is 97.7 degrees, heart rate 79, respirations 18, blood pressure 172/52. O2 is 100% on room air. DISCHARGE DIET: Diabetic. DISCHARGE MEDICATIONS: 1. Lipitor 40 mg p.o. at bedtime. 2. Calcium 500 mg p.o. daily. 3. Vitamin B12 one each sublingual daily. 4. One daily multivitamin one each p.o. daily. 5. [place] 5/325, one each p.o. q.4 hours p.r.n. pain. 6. Icar-C one each daily. 7. Linzess 145 mcg p.o. at bedtime. 8. Magnesium 250 mg p.o. daily. 9. Glucophage 500 mg p.o. b.i.d. 10. Prilosec 40 mg p.o. daily. 11. MiraLAX 17 g p.o. daily. 12. Phenergan 125 mg p.o. q.8 hours p.r.n. 13. Zoloft 25 mg p.o. b.i.d. 14. Ultram 50 mg p.o. q.6 hours p.r.n. 15. Lovenox 40mg SQ daily x 21 days FOLLOWUP: The patient is being discharged to [facility] in [place]. She will need to follow up with either Dr. Tripp or Dr. Moreno, per the patient's choosing, in 1 week, as well as her primary care physician, Dr. Jarek Fagan in 1 week. Patient can return to the ED for any worsening of symptoms. DISCHARGE TIME: Was 30 minutes. Dictated by LOCO Hill for Keira Rodrigez MD cc: MD Jarek Wing MD MTDD
== END 2017-01-10 11:34 ==
LOC: ED 16:44 → 4N 21:15 → SUATTDRO 21:15
PROVIDERS: ATTEND Internal Medicine